=== PATIENT | male | born 1965 | race Caucasian/White ===

== ENCOUNTER 2018-09-07 09:58 | Day surgery (SDC) | payer OTHER ==
[2018-09-07] MEDS ORDERED: MIDAZOLAM 1 MG/ML 2 ML INJ ×2 (12:58)
[2018-09-07] MEDS ORDERED: FENTAnyl 50 MCG/ML VIAL (12:58)
== END 2018-09-07 14:16 | disposition home or self-care (01) ==
LOC: GIL 09:58
DX: Z12.11 Encounter for screening for malignant neoplasm of colon (principal); D12.8 Benign neoplasm of rectum
CPT/HCPCS: 45380; 88305

== ENCOUNTER 2018-12-31 10:07 | Day surgery (SDC) | payer OTHER ==
[~2018-12-31 10:07] MED LIST: CEFAZOLIN 1 GM/50 ML (PMX) 50 ML IVPB
[2018-12-31] MEDS: SOD CHLORIDE 0.9% 1,000 ML IV (11:17)
[2018-12-31 11:33] LABS: ADD MAN DIFF? NO
[2018-12-31 11:37] LABS: BASOPHILS % 0.6 % (0.0-2.0); EOSINOPHILS # 0.3 10^3/ul (0.0-0.5); EOSINOPHILS % 4.9 % (0.0-7.0); HEMATOCRIT 40.2 % (42.0-52.0); HEMOGLOBIN 13.7 g/dl (14.0-18.0); LYMPHOCYTES # 1.5 10^3/ul (0.8-2.9); LYMPHOCYTES % 28.7 % (15.0-51.0); MEAN CORPUSCULAR HGB CONC 34.1 g/dl (32.0-37.0); MEAN PLATELET VOLUME 10.4 fl (7.4-10.4); MONOCYTE # 0.4 10^3/ul (0.3-0.9); MONOCYTES % 8.1 % (0.0-11.0); NEUTROPHIL # 2.9 10^3/ul (1.6-7.5); NEUTROPHILS % 57.3 % (39.0-77.0); PLATELET COUNT 241 10^3/UL (140-415); RED BLOOD COUNT 4.57 10^6/ul (4.70-6.10); RED CELL DISTRIBUTION WIDTH 13.1 % (11.5-14.5)
[2018-12-31 11:37] LABS: WHITE BLOOD COUNT 5.1 10^3/ul (4.8-10.8)
[2018-12-31 11:56] LABS: ALANINE AMINOTRANSFERASE 34 IU/L (13-69); ALBUMIN 3.8 g/dl (3.3-4.9); ALBUMIN/GLOBULIN RATIO 1.08; ALKALINE PHOSPHATASE 62 IU/L (42-121); ANION GAP 5 (5-13); ASPARTATE AMINO TRANSFERASE 22 IU/L (15-46); BILIRUBIN,INDIRECT 1.5 mg/dl (0-1.1); BILIRUBIN,TOTAL 1.5 mg/dl (0.2-1.3); BLOOD UREA NITROGEN 18 mg/dl (7-20); CALCIUM 9.1 mg/dl (8.4-10.2); CARBON DIOXIDE 29 mmol/L (21-31); CHLORIDE 105 mmol/L (97-110); CREATININE 0.65 mg/dl (0.61-1.24); Estimated GFR > 60 mL/min (>60); GLUCOSE 87 mg/dl (70-220); INR 1.02; POTASSIUM 3.8 mmol/L (3.5-5.1); PROTIME 13.5 Sec (11.9-14.9); PT RATIO 1.1; SODIUM 139 mmol/L (135-144); TOTAL PROTEIN 7.3 g/dl (6.1-8.1)
[2018-12-31] MEDS ORDERED: PROPOFOL 20 ML (12:34)
[2018-12-31] MEDS ORDERED: FENTAnyl 50 MCG/ML VIAL (12:35)
[2018-12-31] MEDS ORDERED: CEFAZOLIN 1 GM INJ (12:42)
[2018-12-31] MEDS ORDERED: LIDOCAINE 2% (SDV) 5 ML INJ (12:42)
[2018-12-31] MEDS ORDERED: HYDROCODONE/APAP (5/325) TAB PO (13:00)
[2018-12-31] MEDS: BUPIVACAINE 0.25% (MPF) 30 ML INJ (13:07)
[2018-12-31] MEDS ORDERED: ONDANSETRON 4 MG INJ IV (13:30)
[2018-12-31] MEDS ORDERED: MIDAZOLAM 1 MG/ML 2 ML INJ IV (13:30)
[2018-12-31] MEDS ORDERED: ALBUTEROL 0.083% (NEB) 2.5 MG/3 ML AMP HHN (13:30)
[2018-12-31] MEDS ORDERED: HYDROmorphONE 1 MG/5 ML IV SYRINGE IV ×3 (13:30)
[2018-12-31] MEDS ORDERED: hydrALAzine 20 MG INJ IV (13:30)
[2018-12-31] MEDS ORDERED: DIPHENHYDRAMINE 50 MG INJ IV (13:30)
[2018-12-31] MEDS ORDERED: MEPERIDINE 25 MG INJ IV (13:30)
[2018-12-31] MEDS ORDERED: LABETALOL HCL 20MG INJ IV (13:30)
[2018-12-31] MEDS ORDERED: EPHEDrine 25 MG/5 ML SYG IV (13:30)
[2018-12-31] MEDS ORDERED: OXYCODONE/ACETAMINOPHEN (5/325) TAB PO ×2 (13:30)
[2018-12-31] MEDS ORDERED: FENTAnyl 50 MCG/ML VIAL IV ×3 (13:30)
== END 2018-12-31 14:38 | disposition home or self-care (01) ==
LOC: SDS 10:07
DX: L72.0 Epidermal cyst (principal)
CPT/HCPCS: 14301; 71045; 80053; 85025; 85610; 85730; 88307; 93005